=== PATIENT | female | born 1985 | race Caucasian/White ===

== ENCOUNTER 2016-11-25 05:30 | Inpatient (IN) | payer BC ==
[2016-11-25] MEDS: SODIUM CHLORIDE 0.9% FLUSH 10 ML SOL IV SCH ×3 (06:17→21:50)
[2016-11-25] MEDS ORDERED: CARBOPROST 250 MCG/ML SOL IM PRN (06:31)
[2016-11-25] MEDS ORDERED: SODIUM CHLORIDE 0.9% FLUSH 10 ML SOL IV PRN (06:31)
[2016-11-25] MEDS ORDERED: METHYLERGONOVINE MALEATE 0.2 MG/ML SOL IM PRN (06:31)
[2016-11-25] MEDS ORDERED: OXYTOCIN 10000 MU/ML SOL IM PRN (06:31)
[2016-11-25] MEDS ORDERED: FENTANYL 100MCG/2ML SOL IV PRN (06:31)
[2016-11-25] MEDS ORDERED: LACTATED RINGERS 1,000 ML IV PRN (06:31)
[2016-11-25] MEDS ORDERED: OXYTOCIN 10000 MU/ML SOL IV PRN (21:00)
[2016-11-25] MEDS: MEPIVACAINE HCL 1% MPF 30 ML SOL INFIL PRN ×2 (21:35→22:00)
[2016-11-25] MEDS ORDERED: LIDOCAINE HCL 1% MPF SOL ONE (23:19)
[2016-11-25] MEDS ORDERED: PROPOFOL 500 MG/50 ML EMU IV ONE (23:19)
[2016-11-25] MEDS ORDERED: MIDAZOLAM 2 MG/2 ML SOL ONE (23:22)
[2016-11-25] MEDS ORDERED: FENTANYL 100MCG/2ML SOL ONE (23:23)
[2016-11-25] MEDS ORDERED: METOCLOPRAMIDE HYDROCHLORIDE 5 MG/ML SOL ONE (23:38)
[2016-11-25] MEDS ORDERED: DEXAMETHASONE 20 MG/5 ML (4 MG/ML SOL) ONE (23:38)
[2016-11-25] MEDS ORDERED: ONDANSETRON HCL 4 MG/2 ML SOL ONE (23:38)
[2016-11-25] MEDS ORDERED: CEFAZOLIN SODIUM 1 GM PDS IV ONE (23:43)
[2016-11-26] MEDS ORDERED: PROPOFOL 10 MG/ML EMU IV ONE ×2 (00:19→00:35)
[2016-11-26] MEDS ORDERED: FLEET ENEMA PR PRN (02:20)
[2016-11-26] MEDS ORDERED: TEMAZEPAM 15MG 15 MG CAP PO PRN (02:20)
[2016-11-26] MEDS ORDERED: METHYLERGONOVINE MALEATE 0.2 MG TAB PO PRN (02:20)
[2016-11-26] MEDS ORDERED: BISACODYL 10 MG SUP PR PRN (02:20)
[2016-11-26] MEDS: APAP/HYDROCODONE 325/5 TAB PO PRN ×4 (02:49→19:32)
[2016-11-26] MEDS: DOCUSATE SODIUM 100 MG SGL PO SCH ×3 (02:49→20:58)
[2016-11-26] MEDS ORDERED: CEFAZOLIN (PREMIX) 1 GM SOL IV ONE (07:45)
[2016-11-26] MEDS ORDERED: CEFAZOLIN SODIUM 1 GM PDS IV ONE (07:45)
[2016-11-26] MEDS ORDERED: CEFAZOLIN (PREMIX) 1 GM 1 GM/50 ML SOL IV ONE (07:50)
[2016-11-26] MEDS: SODIUM CHLORIDE 0.9% FLUSH 10 ML SOL IV SCH ×2 (07:57→16:32)
[2016-11-26] MEDS: BENZOCAINE/MENTHOL 1 SPR TOP PRN ×3 (08:56→20:59)
[2016-11-26] MEDS: FOLIC ACID 1 MG TAB PO SCH (09:03)
[2016-11-26] MEDS: MULTIVITAMIN2 1 EA TAB PO SCH (09:03)
[2016-11-26] MEDS: IBUPROFEN 600 MG TAB PO PRN ×2 (10:52→19:32)
[2016-11-27] MEDS: APAP/HYDROCODONE 325/5 TAB PO PRN ×4 (01:02→21:30)
[2016-11-27] MEDS: IBUPROFEN 600 MG TAB PO PRN ×2 (07:27→18:06)
[2016-11-27] MEDS: BENZOCAINE/MENTHOL 1 SPR TOP PRN ×2 (08:00→15:00)
[2016-11-27] MEDS: FOLIC ACID 1 MG TAB PO SCH (09:35)
[2016-11-27] MEDS: MULTIVITAMIN2 1 EA TAB PO SCH (09:35)
[2016-11-27] MEDS: DOCUSATE SODIUM 100 MG SGL PO SCH ×2 (09:35→20:03)
[2016-11-27] MEDS: WITCH HAZEL 1 EA PAD TOP PRN ×2 (18:16→19:54)
[2016-11-28] MEDS: IBUPROFEN 600 MG TAB PO PRN (04:22)
[2016-11-28] MEDS: WITCH HAZEL 1 EA PAD TOP PRN (04:26)
[2016-11-28 04:30] VITALS: RESP 18; O2SAT 99
[2016-11-28] MEDS: APAP/HYDROCODONE 325/5 TAB PO PRN (08:42)
[2016-11-28] MEDS: MULTIVITAMIN2 1 EA TAB PO SCH (08:43)
[2016-11-28] MEDS: DOCUSATE SODIUM 100 MG SGL PO SCH (08:43)
[2016-11-28] MEDS: FOLIC ACID 1 MG TAB PO SCH (08:43)
[2016-11-28 14:41] VITALS: BP 126/78; PULSE 72; TEMP 98
== END 2016-11-28 13:50 | disposition home or self-care (01) | DRG 560 ==
LOC: OB 05:30 → OBSVTOIN 05:30
PROVIDERS: ADMIT Family Medicine; ATTEND Emergency Medicine
PROC: 0DQP0ZZ Repair Rectum, Open Approach (ICD-10-PCS; principal; 2016-11-26)
PROC: 10E0XZZ Delivery of Products of Conception, External Approach (ICD-10-PCS; 2016-11-26)
PROC: 0UQGXZZ Repair Vagina, External Approach (ICD-10-PCS; 2016-11-26)
DX: O70.3 Fourth degree perineal laceration during delivery (principal); O72.1 Other immediate postpartum hemorrhage; Z37.0 Single live birth; Z3A.40 40 weeks gestation of pregnancy
CPT/HCPCS: 36415; 59025; 72170; 85018; J0670; J0690; J1100; J2210; J2250; J2405; J2590; J2765; J3010; J2001; J2704

== ENCOUNTER 2017-03-26 12:33 | Day surgery (SDC) | payer BC ==
[2017-03-26 12:49] VITALS: RESP 16
[2017-03-26] MEDS ORDERED: DEXAMETHASONE SOD PHOS PF 10 MG/ML SOL IJ ONE (13:03)
[2017-03-26 13:31] VITALS: BP 104/73; PULSE 77; TEMP 97.8; O2SAT 97
== END 2017-03-26 13:48 | disposition home or self-care (01) ==
LOC: SURG 12:33
PROVIDERS: ATTEND Nurse Anesthetist, Certified Registered
DX: M54.5 Low back pain (principal); M54.10 Radiculopathy, site unspecified
CPT/HCPCS: 62323; 77003; 84703; J1100

== ENCOUNTER 2017-04-24 12:02 | Day surgery (SDC) | payer BC ==
[2017-04-24 12:20] VITALS: O2SAT 98
[2017-04-24] MEDS: DEXAMETHASONE SOD PHOS PF 10 MG/ML SOL IJ ONE ×2 (12:51→12:59)
[2017-04-24 13:14] VITALS: BP 100/80; PULSE 57; RESP 20; TEMP 97.1
== END 2017-04-24 13:25 | disposition home or self-care (01) ==
LOC: SURG 12:02
PROVIDERS: ATTEND Nurse Anesthetist, Certified Registered
DX: M54.5 Low back pain (principal); M54.16 Radiculopathy, lumbar region
CPT/HCPCS: 64483; 77003; J1100

== ENCOUNTER 2017-05-15 12:32 | Day surgery (SDC) | payer BC ==
[2017-05-15] MEDS ORDERED: BUPIVACAINE HCL 0.25% MPF 10 ML SOL INFIL ONE (13:03)
[2017-05-15] MEDS: DEXAMETHASONE SOD PHOS PF 10 MG/ML SOL IJ ONE ×3 (13:07→13:19)
[2017-05-15 13:36] VITALS: BP 115/80; PULSE 51; RESP 20; TEMP 98.3; O2SAT 95
== END 2017-05-15 13:50 | disposition home or self-care (01) ==
LOC: SURG 12:32
PROVIDERS: ATTEND Nurse Anesthetist, Certified Registered
DX: M54.5 Low back pain (principal); M54.16 Radiculopathy, lumbar region
CPT/HCPCS: 64483; 64484; 77003; J1100

== ENCOUNTER 2017-09-08 07:22 | Emergency (ER) | payer BC ==
[2017-09-08 07:43] VITALS: TEMP 96.4
[2017-09-08] MEDS ORDERED: KETOROLAC TROMETHAMINE 30 MG/ML SOL IM ONE (07:47)
[2017-09-08] MEDS ORDERED: CEFTRIAXONE 1 GM PDS IM ONE (07:47)
[2017-09-08] MEDS ORDERED: LIDOCAINE HCL 1% MPF SOL ONE (07:51)
[2017-09-08] MEDS ORDERED: KETOROLAC TROMETHAMINE 30 MG/ML SOL ONE (07:51)
[2017-09-08] MEDS ORDERED: CEFTRIAXONE 1 GM PDS ONE (07:51)
[2017-09-08] MEDS ORDERED: SULFAMETHOXAZOLE/TRIMETHOPRI 800/160 MG PO ONE (07:59)
[2017-09-08 08:33] VITALS: BP 114/74; PULSE 84; RESP 20; O2SAT 99
== END 2017-09-08 08:18 | disposition home or self-care (01) ==
LOC: ED 07:22
DX: L03.213 Periorbital cellulitis (principal); H00.034 Abscess of left upper eyelid
CPT/HCPCS: 96372; 99282; 99283; J0696; J1885; J2001